=== PATIENT | male | born 1960 | race Caucasian/White ===

== ENCOUNTER 2024-10-30 07:23 | Outpatient (CLI) | payer BC, SELFPAY | END 2024-10-30 07:24 | disposition home or self-care (01) | LOC: NFLDREF 10-31 02:13 | PROVIDERS: PCP Internal Medicine; Referring Provider Internal Medicine; Visit Provider Internal Medicine | DX: E78.5 Hyperlipidemia, unspecified (principal); Z13.9 Encounter for screening, unspecified; Z12.5 Encounter for screening for malignant neoplasm of prostate | CPT/HCPCS: 80053; 80061; G0103 ==